=== PATIENT | female | born 1965 | race Caucasian/White ===

== ENCOUNTER 2021-03-04 10:05 | Emergency (ER) | payer BC ==
[~2021-03-04] VITALS: Ht 167.6 cm; Wt 99.8 kg
--- NOTE | 2021-03-04 10:05 | NUR ---
BIB [facility] FROM HOME, WENT INTO CP ARREST WHILE ENROUTE AT 1002, ACLS PROTOCOL INITIATED AND CONTINUED UPON ARRIVAL AT 1005 TO ER BED 8. REFER TO CODE SHEET.
[2021-03-04] MEDS ORDERED: SODIUM BICARBONATE SYR 50 MEQ/50 ML DISP.SYRIN IV ONE (10:08)
[2021-03-04] MEDS ORDERED: EPINEPHRINE (1:10,000) SYRINGE 1 MG/10 ML DISP.SYRIN IVP ONE (10:08)
[2021-03-04 10:40] VITALS: BP 0/0
--- NOTE | 2021-03-04 11:00 | NUR ---
X 1 LVM TO BE PAGED.
--- NOTE | 2021-03-04 11:01 | NUR ---
DR. POWERS [phone] [employer]INEER PAGED.
--- NOTE | 2021-03-04 11:11 | NUR ---
SPOKE WITH DR CARLOS MOYER WHO IS THE COVERING MD FOR DR MELCHOR (THE PATIENT`S PRIMARY MD). PER DR CARLOS MELCHOR WILL SIGN RECORD.
--- NOTE | 2021-03-04 11:20 | NUR ---
PER [facility], WILL COME INSPECT BODY IN 1 HOUR WHEN FAMILY IS NOT AT BEDSIDE
--- NOTE | 2021-03-04 11:20 | NUR ---
CALLED [facility], SPOKE TO AMBR[place]. REFERAL # [id number]
--- NOTE | 2021-03-04 11:30 | NUR ---
[employer] NOTIFIED
--- NOTE | 2021-03-04 11:54 | NUR ---
CALLED [employer]
--- NOTE | 2021-03-04 12:38 | NUR ---
CALLED [employer]IC[employer]2. PUT ON LONG HOLD, AND ADMISSIONS OFFICER HUNG UP. CALLING AGAIN.
--- NOTE | 2021-03-04 13:09 | NUR ---
SENIOR PROJECT MANAGER ENGINEERING'S CASE. SPOKE TO Hailee PA AT [phone]. SHE SAID NEEDS TO CALL MORTUARY AND BRING HER HERE. THEY WILL DO EXTERNAL EXAMINATION, NO AUTOPSY. CASE # [id number]
--- NOTE | 2021-03-04 14:26 | NUR ---
PT TAKEN TO CLAIRE
== END 2021-03-04 14:26 ==
LOC: ER 10:07
DX: I46.9 Cardiac arrest, cause unspecified (principal)
CPT/HCPCS: 31500; 92950; 99291; J0171; J3490